=== PATIENT | female | born 1955 | race Caucasian/White ===

== ENCOUNTER 2016-08-28 08:45 | Emergency (ER) | payer SELFPAY ==
[2016-08-28] MEDS ORDERED: TRAMADOL 50 MG TAB ONE (10:44)
== END 2016-08-28 11:39 | disposition home or self-care (01) ==
LOC: ER 08:45
DX: N10 Acute pyelonephritis (principal); N39.0 Urinary tract infection, site not specified; F17.210 Nicotine dependence, cigarettes, uncomplicated
CPT/HCPCS: 36415; 80053; 81001; 83690; 85025; 87088